=== PATIENT | male | born 1990 | race Native Hawaiian/Other Pacific Islander ===

== ENCOUNTER 2020-11-02 14:50 | Emergency (ER) | payer OTHER ==
[~2020-11-02] VITALS: Ht 190.5 cm; Wt 97.5 kg
[2020-11-02 15:06] VITALS: TEMP 98.1
[2020-11-02 16:19] VITALS: BP 120/84
== END 2020-11-02 16:20 | disposition home or self-care (01) ==
LOC: ED 14:50
PROC: 0HQLXZZ Repair Left Lower Leg Skin, External Approach (ICD-10-PCS; principal; 2020-11-02)
DX: S81.812A Laceration without foreign body, left lower leg, initial encounter (principal); W54.0XXA Bitten by dog, initial encounter; Y92.89 Other specified places as the place of occurrence of the external cause
CPT/HCPCS: 90471; 90715; 96372; 99283; J0690; J1885